=== PATIENT | female | born 1970 | race Caucasian/White ===

== ENCOUNTER → 2017-08-24 | Outpatient (CLI) | payer OTHER ==
--- NOTE | 2017-08-26 08:15 | MM ---
Reason for exam: screening (asymptomatic). Last mammogram was performed 4 years and 1 month ago. History: Family history of breast cancer in grandmother. Benign US right guided mammotome of the right breast, November 04, 2005. Took hormonal contraceptives for 2 years 6 months. Physical Findings: A clinical breast exam by your physician is recommended on an annual basis and results should be correlated with mammographic findings. MG Screening Mammo w CAD Bilateral CC and MLO view(s) were taken. Prior study comparison: July 26, 2013, CAD bilateral diagnostic mammogram. December 31, 2006, CAD bilateral diagnostic mammogram. The breast tissue is heterogeneously dense. This may lower the sensitivity of mammography. Previous mammotome biopsy in the right breast. Microcalcifications posterior upper outer quadrant right breast appears new. Some calcifications at 6 o'clock in the left breast were present in 2012. ASSESSMENT: Incomplete: need additional imaging evaluation, BI-RAD 0 RECOMMENDATION: Special view mammogram of the right breast. [facility] will attempt to contact patient to return for supplemental views.
== END | disposition home or self-care (01) ==
LOC: RADMAMWWP 13:37
PROVIDERS: ATTEND Family Medicine
DX: Z12.31 Encounter for screening mammogram for malignant neoplasm of breast (principal)

== ENCOUNTER → 2018-04-25 | Outpatient (CLI) | payer OTHER ==
--- NOTE | 2018-04-25 10:43 | MM ---
Reason for exam: follow-up at short interval from prior study. Last mammogram was performed 8 months ago. History: Family history of breast cancer in grandmother. Benign US right guided mammotome of the right breast, November 04, 2005. Took hormonal contraceptives for 2 years 6 months. Physical Findings: Nurse Summary: left upper quadrant thickening, tender with palpation (nurse mj). MG 3D Diag Mammo W/Cad EZIO Bilateral CC and MLO view(s) were taken. XCCL, CC with magnification, and LM with magnification view(s) were taken of the right breast. Prior study comparison: August 24, 2017, bilateral MG screening mammo w CAD. Finding: There are increased intermediate concern, suspicious fine, grouped/clustered calcifications in the upper outer quadrant, posterior position of the right breast. Previous mammotome biopsy in the right breast. Finding is changed since August 24, 2017. These results were verbally communicated with the patient and result sheet given to the patient on 04/25/18. ASSESSMENT: Suspicious, BI-RAD 4 Probably benign, BI-RAD 3 finding in the left breast. Suspicious, BI-RAD 4 abnormality in the right breast. RECOMMENDATION: Ultrasound of the left breast. (left mammogram and ultrasound today for palpable thickening) Surgical consultation and stereotactic core biopsy of the right breast. Called Dr. Mccabe with mammographic findings and has scheduled an appointment for the patient for 04/27/18 at 3:[address] Fenton. PRELIMINARY REPORT CALLED AND FAXED TO DR. FENTON ON 04/25/18.
--- NOTE | 2018-04-25 10:46 | USB ---
Reason for exam: clinical finding. History: Family history of breast cancer in grandmother. Benign US right guided mammotome of the right breast, November 04, 2005. Took hormonal contraceptives for 2 years 6 months. Indicated problem(s): palpable abnormality in the left breast. US Breast Limited LT Left limited breast ultrasound including focal area of concern, retroareolar and axilla demonstrates a 0.8 x 0.5 x 0.7cm cystic cluster at 12 o'clock, a 0.7 x 0.3 x 0.6cm cystic cluster at 2 o'clock, a 0.5 x 0.3 x 0.3cm lesion too small to characterize at 3 o'clock and a 0.5 x 0.3 x 0.6cm cystic lesion at 3 o'clock. These results were verbally communicated with the patient and result sheet given to the patient on 04/25/18. ASSESSMENT: Probably benign, BI-RAD 3 RECOMMENDATION: Follow-up diagnostic mammogram and ultrasound of the left breast in 6 months.
== END | disposition home or self-care (01) ==
LOC: RADMAMWWP 07:01
PROVIDERS: ATTEND Family Medicine
DX: R92.8 Other abnormal and inconclusive findings on diagnostic imaging of breast (principal)
CPT/HCPCS: 77062; 77066

== ENCOUNTER → 2018-11-30 | Outpatient (CLI) | payer OTHER ==
--- NOTE | 2018-12-01 10:02 | MM ---
Reason for exam: follow-up at short interval from prior study. Last mammogram was performed 7 months ago. History: Family history of breast cancer in grandmother. Benign US right guided mammotome of the right breast, November 04, 2005. May 19 right excisional. Took hormonal contraceptives for 2 years 6 months. Physical Findings: Nurse did not find any significant physical abnormalities on exam. MG 3D Diag Mammo W/Cad LT Spot compression CC, spot compression MLO, CC, MLO, and ML view(s) were taken of the left breast. Prior study comparison: April 25, 2018, bilateral MG 3d diag mammo w/cad EZIO. August 30, 2017, right breast MG work up mamm w CAD RT. The breast tissue is heterogeneously dense. This may lower the sensitivity of mammography. There is an irregular suspicious equal architechtual distortion indistenct left breast upper middle position. Approximitly 9 cm from the nipple. This is suspicious and a surgical consultation for a stereo core biopsy is recommended. There are stable grouped lower inner middle left breast calcification. Focal asymmetry medial upper left breast that is changed when compared to prior studies and an ultrasound is recommended now. ASSESSMENT: Incomplete: need additional imaging evaluation, BI-RAD 0 RECOMMENDATION: Ultrasound of the left breast.
--- NOTE | 2018-12-01 10:14 | USB ---
Reason for exam: additional evaluation requested from prior study. History: Family history of breast cancer in grandmother. Benign US right guided mammotome of the right breast, November 04, 2005. Took hormonal contraceptives for 2 years 6 months. US Breast Limited LT Left limited breast ultrasound including focal area of concern, retroareolar and axilla demonstrates a 8 x 5 x 7 mm oval solid hypoechoic lesion that needs to be biopsied at the 12 o'clock, a 4 x 3 x 4 mm oval hypoechoic lesion at 3 o'clock, a3 x 2 x 3 mm oval hypoechoic lesion at 3 o'clock, and a 4 x 2 x 5 mm oval hypoechoic lesion at 3 o'clock all seen on previous study These results were verbally communicated with the patient and result sheet given to the patient on 11/30/18. ASSESSMENT: Suspicious, BI-RAD 4 RECOMMENDATION: Stereotactic core biopsy and ultrasound core biopsy of the left breast. Called Dr. Mccabe with mammographic findings and has scheduled an appointment for the patient for 12/07/18 at 1:[address] Fenton for a consultation only. PRELIMINARY REPORT CALLED AND FAXED TO DR. FENTON ON 11/30/18.
== END | disposition home or self-care (01) ==
LOC: RADMAMWWP 08:32
PROVIDERS: ATTEND Family Medicine
DX: R92.8 Other abnormal and inconclusive findings on diagnostic imaging of breast (principal)
CPT/HCPCS: 77061; 77065

== ENCOUNTER → 2019-04-26 | Outpatient (CLI) | payer OTHER ==
--- NOTE | 2019-04-26 11:06 | MM ---
Reason for exam: follow-up at short interval from prior study. Last mammogram was performed 5 months ago. History: Family history of breast cancer in grandmother. Benign stereotactic core biopsy of the left breast, November 2018. Ultrasound-guided core biopsy of the left breast, November 2018. Benign excisional biopsy of the right breast, May 2018. Benign US right guided mammotome of the right breast, November 04, 2005. Took hormonal contraceptives for 2 years 6 months. Physical Findings: Nurse did not find any significant physical abnormalities on exam. MG 3D Diag Mammo W/Cad EZIO Bilateral CC and MLO view(s) were taken. LM, spot compression CC, CC with magnification, and LM with magnification view(s) were taken of the left breast. Prior study comparison: November 30, 2018, left breast MG 3d diag mammo w/cad LT. April 25, 2018, bilateral MG 3d diag mammo w/cad EZIO. The breast tissue is heterogeneously dense. This may lower the sensitivity of mammography. Right post surgical change and additional biopsy marker. Left posterior lateral breast asymmetry on spot views, this improves on spot CC. 6mm group of left lower outer quadrant calcifications at middle depth appears present since 2017 with no appreciable increase in number, however, no magnification news on priors. These appear to layer on magnification ML. Left biopsy markers noted. These results were verbally communicated with the patient and result sheet given to the patient on 04/26/19. ASSESSMENT: Probably benign, BI-RAD 3 RECOMMENDATION: Follow-up diagnostic mammogram of the left breast in 6 months.
== END | disposition home or self-care (01) ==
LOC: RADMAMWWP 08:43
PROVIDERS: ATTEND Family Medicine
DX: R92.8 Other abnormal and inconclusive findings on diagnostic imaging of breast (principal)
CPT/HCPCS: 77062; 77066

== ENCOUNTER 2019-12-24 11:32 | Emergency (ER) | payer OTHER ==
--- NOTE | 2019-12-24 11:56 | ED ---
General Adult HPI - General Chief complaint: Chest Pain Stated complaint: chest pain Time Seen by Provider: 12/24/19 11:40 Source: patient, RN notes reviewed, old records reviewed Mode of arrival: wheelchair Limitations: no limitations - History of Present Illness Initial comments: 49-year-old female presented for evaluation of anterior and right-sided chest pain. Pain is been present for the past 3 days. She's had pain predominantly at rest and treated this to her anxiety. She normally has some chest discomfort associated with her anxiety which is relieved by Xanax. Today she did take a Xanax and this did not completely relieve her symptoms so she presented to the emergency department for evaluation. She denies associated dyspnea. No vomi ting or abdominal pain. No diaphoresis. No lower extremity pain or swelling. Patient is a current smoker and has history of hypertension. She is a nondiabetic. She has a family history of CAD. Denies any extremity or jaw pain. Pain was moderate in intensity described as a discomfort and pressure, - Related Data Allergies Allergy/AdvReac Type Severity Reaction Status Date / Time ampicillin Allergy Nausea & Verified 12/24/19 11:42 Vomiting latex Allergy Unknown Verified 12/24/19 11:42 codeine AdvReac Nausea & Verified 11/30/18 09:30 Vomiting Review of Systems ROS Statement: Those systems with pertinent positive or pertinent negative responses have been documented in the HPI. ROS Other: All systems not noted in ROS Statement are negative. Past Medical History Past Medical History: GERD/Reflux, Hyperlipidemia, Hypertension History of Any Multi-Drug Resistant Organisms: None Reported Past Surgical History: Tonsillectomy Past Psychological History: Anxiety General Exam Limitations: no limitations General appearance: alert, in no apparent distress Head exam: Present: atraumatic, normocephalic Eye exam: Present: normal appearance, PERRL, EOMI ENT exam: Present: normal exam Neck exam: Present: normal inspection. Absent: tenderness Respiratory exam: Present: normal lung sounds bilaterally. Absent: respiratory distress, wheezes Cardiovascular Exam: Present: regular rate, normal rhythm GI/Abdominal exam: Present: soft. Absent: distended, tenderness, guarding Extremities exam: Present: normal inspection, normal capillary refill, other (Distal pulses 2+ and symmetric). Absent: pedal edema, calf tenderness Back exam: Present: normal inspection Neurological exam: Present: alert, oriented X3, CN II-XII intact. Absent: motor sensory deficit Psychiatric exam: Present: anxious Skin exam: Present: warm, dry, intact. Absent: cyanosis, diaphoretic Course Vital Signs 12/24/19 12/24/19 12/24/19 11:39 11:55 12:48 Temperature 97.4 F L Pulse Rate 91 75 Pulse Rate [ 85 [place] ] Respiratory 18 18 Rate Blood Pressure 136/81 120/68 O2 Sat by Pulse 100 99 Oximetry EKG Findings - EKG Comments: EKG Findings:: EKG: Normal sinus rhythm, rate of 89, MI interval 154, QRS duration 84, QTC 435, no ST segment elevation. Medical Decision Making - Medical Decision Making 49-year-old female presented for evaluation of anterior right-sided chest pain. Patient is atypical with some typical features and the patient does have risk factors for CAD. EKG is nonischemic with no ST segment elevation. She has leukocytosis of 14.8 and has recently been on steroids. She has stable hemoglobin. She has an elevated d-dimer at 1.37. She has normal electrolytes, negative initial troponin. Chest x-rays negative for focal pneumonia. CT angiography is obtained given the elevated d-dimer, this is negative for PE. There is a diffuse groundglass opacity suggestive of either alveolitis or CHF. I did recommend admission for this patient for serial troponins, echo, cardiology consultation as well as IV antibiotics and steroids. She declines. She requests be discharged and wants to follow-up with her primary care physician. She is informed of the risks and will return with any worsening or changing symptoms. At the time of final discussion she is chest pain-free., Normal oxygenation on room air, and stable vitals. She will request an echo and stress test as an outpatient and will return with development of fever, dyspnea, chest pain. - Lab Data Result diagrams: 12/24/19 11:51 12/24/19 11:51 Lab Results 12/24/19 12/24/19 12/24/19 Range/Units 11:51 11:51 11:51 WBC 14.8 H (3.8-10.6) k/uL RBC 4.66 (3.80-5.40) m/uL Hgb 14.5 (11.4-16.0) gm/dL Hct 43.6 (34.0-46.0) % MCV 93.6 (80.0-100.0) fL MCH 31.1 (25.0-35.0) pg MCHC 33.2 (31.0-37.0) g/dL RDW 12.9 (11.5-15.5) % Plt Count 296 (150-450) k/uL Neutrophils % 64 % Lymphocytes % 25 % Monocytes % 5 % Eosinophils % 2 % Basophils % 2 % Neutrophils # 9.6 H (1.3-7.7) k/uL Lymphocytes # 3.7 (1.0-4.8) k/uL Monocytes # 0.7 (0-1.0) k/uL Eosinophils # 0.3 (0-0.7) k/uL Basophils # 0.4 H (0-0.2) k/uL PT 10.0 (9.0-12.0) sec INR 1.0 (<1.2) APTT 23.1 (22.0-30.0) sec D-Dimer 1.37 H (<0.60) mg/L FEU Sodium 134 L (137-145) mmol/L Potassium 4.2 (3.5-5.1) mmol/L Chloride 103 (98-107) mmol/L Carbon Dioxide 24 (22-30) mmol/L Anion Gap 7 mmol/L BUN 16 (7-17) mg/dL Creatinine 0.64 (0.52-1.04) mg/dL Est GFR (CKD-EPI)AfAm >90 (>60 ml/min/1.73 sqM) Est GFR (CKD-EPI)NonAf >90 (>60 ml/min/1.73 sqM) Glucose 98 (74-99) mg/dL Calcium 9.5 (8.4-10.2) mg/dL Magnesium 2.0 (1.6-2.3) mg/dL Total Bilirubin 0.5 (0.2-1.3) mg/dL AST 21 (14-36) U/L ALT 23 (4-34) U/L Alkaline Phosphatase 98 (38-126) U/L Troponin I (0.000-0.034) ng/mL Total Protein 7.0 (6.3-8.2) g/dL Albumin 4.2 (3.5-5.0) g/dL 02/09/20 Range/Units 11:51 WBC (3.8-10.6) k/uL RBC (3.80-5.40) m/uL Hgb (11.4-16.0) gm/dL Hct (34.0-46.0) % MCV (80.0-100.0) fL MCH (25.0-35.0) pg MCHC (31.0-37.0) g/dL RDW (11.5-15.5) % Plt Count (150-450) k/uL Neutrophils % % Lymphocytes % % Monocytes % % Eosinophils % % Basophils % % Neutrophils # (1.3-7.7) k/uL Lymphocytes # (1.0-4.8) k/uL Monocytes # (0-1.0) k/uL Eosinophils # (0-0.7) k/uL Basophils # (0-0.2) k/uL PT (9.0-12.0) sec INR (<1.2) APTT (22.0-30.0) sec D-Dimer (<0.60) mg/L FEU Sodium (137-145) mmol/L Potassium (3.5-5.1) mmol/L Chloride (98-107) mmol/L Carbon Dioxide (22-30) mmol/L Anion Gap mmol/L BUN (7-17) mg/dL Creatinine (0.52-1.04) mg/dL Est GFR (CKD-EPI)AfAm (>60 ml/min/1.73 sqM) Est GFR (CKD-EPI)NonAf (>60 ml/min/1.73 sqM) Glucose (74-99) mg/dL Calcium (8.4-10.2) mg/dL Magnesium (1.6-2.3) mg/dL Total Bilirubin (0.2-1.3) mg/dL AST (14-36) U/L ALT (4-34) U/L Alkaline Phosphatase (38-126) U/L Troponin I <0.012 (0.000-0.034) ng/mL Total Protein (6.3-8.2) g/dL Albumin (3.5-5.0) g/dL Disposition Clinical Impression: Chest pain Disposition: HOME SELF-CARE Condition: Fair Instructions (If sedation given, give patient instructions): Chest Pain (ED) Is patient prescribed a controlled substance at d/c from ED?: No Referrals: Rudy Mccabe MD [Primary Care Provider] - 1-2 days Time of Disposition: 13:26
[2019-12-24 12:01] LABS: Basophils # (A) 0.4 k/uL (0-0.2); Basophils % (A) 2 %; Eosinophils # (A) 0.3 k/uL (0-0.7); Eosinophils % (A) 2 %; HCT 43.6 % (34.0-46.0); HGB 14.5 gm/dL (11.4-16.0); Lymphocytes # (A) 3.7 k/uL (1.0-4.8); Lymphocytes % (A) 25 %; MCH 31.1 pg (25.0-35.0); MCHC 33.2 g/dL (31.0-37.0); MCV 93.6 fL (80.0-100.0); Mean Platelet Volume 7.6; Monocytes # (A) 0.7 k/uL (0-1.0); Monocytes % (A) 5 %; Neutrophils # (A) 9.6 k/uL (1.3-7.7); Neutrophils % (A) 64 %; Platelet Count 296 k/uL (150-450); RBC 4.66 m/uL (3.80-5.40); RDW 12.9 % (11.5-15.5); WBC 14.8 k/uL (3.8-10.6)
[2019-12-24 12:10] LABS: ALT 23 U/L (4-34); AST 21 U/L (14-36); African American GFR (CKD) >90 (>60 ml/min/1.73 sqM); Albumin 4.2 g/dL (3.5-5.0); Alkaline Phosphatase 98 U/L (38-126); Anion Gap 7 mmol/L; Blood Urea Nitrogen 16 mg/dL (7-17); Calcium 9.5 mg/dL (8.4-10.2); Carbon Dioxide 24 mmol/L (22-30); Chloride 103 mmol/L (98-107); Glucose 98 mg/dL (74-99); Non-African American GFR(CKD) >90 (>60 ml/min/1.73 sqM); Potassium 4.2 mmol/L (3.5-5.1); Sodium 134 mmol/L (137-145); Total Bilirubin 0.5 mg/dL (0.2-1.3)
[2019-12-24 12:15] LABS: Partial Thromboplastin Time 23.1 sec (22.0-30.0)
[2019-12-24 12:22] LABS: D-Dimer 1.37 mg/L FEU (<0.60)
--- NOTE | 2019-12-24 12:23 | XR ---
EXAMINATION TYPE: XR chest 2V DATE OF EXAM: 12/24/2019 HISTORY: Chest Pain. REFERENCE: NONE. FINDINGS: The lungs are clear. Pleural spaces are clear. The heart is not enlarged. IMPRESSION: NO ACTIVE INTRATHORACIC DISEASE.
[2019-12-24] MEDS ORDERED: ASPIRIN 325 MG TAB PO STA (12:35)
[2019-12-24 12:49] VITALS: BP 120/68; PULSE 75
--- NOTE | 2019-12-24 13:00 | CT ---
EXAMINATION TYPE: CT angio chest DATE OF EXAM: 12/24/2019 12:42 PM COMPARISON: None. HISTORY: Chest pains, elevated d-dimer CT DLP: 363.8 mGycm Automated exposure control for dose reduction was used. CONTRAST: CTA scan of the thorax is performed with IV Contrast, patient injected with 100 mL of Isovue 370, pul monary embolism protocol. . FINDINGS: There is diffuse groundglass opacity throughout both lungs with small areas of relative spa ring. This may be on the basis of alveolitis, pneumonitis or congestive heart failure. There is no lo bar consolidation identified. There is no significant axillary, mediastinal or hilar adenopathy. There is no evidence of pulmonary embolus. The aorta is normal in caliber without evidence of dissection. There is no pleural or pericardial flu id. Heart size is within normal limits. There is a small hiatal hernia. There is evidence of old granulomatous disease in the liver and spleen. The spleen is quite heterogen ous in its enhancement pattern. This is likely due to the arterial nature of the contrast bolus. IMPRESSION: 1. THIS EXAMINATION IS NEGATIVE FOR PULMONARY EMBOLUS. 2. DIFFUSE GROUNDGLASS OPACITY THROUGHOUT THE LUNGS DISCUSSED ABOVE. 3. EVIDENCE OF OLD GRANULOMATOUS DISEASE OF THE LIVER AND SPLEEN.
[2019-12-24] MEDS ORDERED: DEXAMETHASONE SOD PHOSPHATE 10 MG/ML 1 ML VIAL IV STA (13:08)
[2019-12-24] MEDS ORDERED: AZITHROMYCIN 500 MG in SODIUM CHLORIDE 0.9% 250 ML IVPB STA (13:08)
[2019-12-24] MEDS ORDERED: cefTRIAXone IN SWFI 1,000 MG/10 ML SYRINGE IVP STA (13:08)
[2019-12-24 13:31] VITALS: RESP 14; TEMP 98.1
== END 2019-12-24 13:35 | disposition home or self-care (01) ==
LOC: EC 11:32
DX: R07.9 Chest pain, unspecified (principal); I10 Essential (primary) hypertension; Z88.1 Allergy status to other antibiotic agents; Z91.040 Latex allergy status; Z88.5 Allergy status to narcotic agent
CPT/HCPCS: 36415; 93005; 85379; 83880; 80053; 83735; 84484; 85025; 85610; 85730; 71046; 71275; 99285; Q9967

== ENCOUNTER → 2020-07-10 | Outpatient (CLI) | payer OTHER ==
--- NOTE | 2020-07-10 14:47 | MM ---
Reason for exam: additional evaluation requested from prior study. Last mammogram was performed 1 year and 2 months ago. History: Patient is postmenopausal. Family history of breast cancer in grandmother. Benign stereotactic core biopsy of the left breast, November 2018. Ultrasound-guided core biopsy of the left breast, November 2018. Benign excisional biopsy of the right breast, May 2018. Benign US right guided mammotome of the right breast, November 04, 2005. Took hormonal contraceptives for 2 years 6 months. Physical Findings: Nurse did not find any significant physical abnormalities on exam. MG 3D Diag Mammo W/Cad EZIO Bilateral CC and MLO view(s) were taken. Prior study comparison: April 26, 2019, bilateral MG 3d diag mammo w/cad EZIO. November 30, 2018, left breast MG 3d diag mammo w/cad LT. The breast tissue is heterogeneously dense. This may lower the sensitivity of mammography. Finding: There are stable fine, grouped/clustered calcifications in the upper quadrant, middle position of the left breast. Previous mammotome biopsy in the right and left breast. No significant changes in finding since April 26, 2019 and November 30, 2018. These results were verbally communicated with the patient and result sheet given to the patient on 07/10/20. ASSESSMENT: Benign, BI-RAD 2 RECOMMENDATION: Routine screening mammogram of both breasts in 1 year.
== END | disposition home or self-care (01) ==
LOC: RADMAMWWP 13:44
PROVIDERS: ATTEND Family Medicine
DX: R92.8 Other abnormal and inconclusive findings on diagnostic imaging of breast (principal)
CPT/HCPCS: 77062; 77066

== ENCOUNTER → 2021-03-13 | Outpatient (CLI) | payer OTHER ==
--- NOTE | 2021-03-13 16:31 | XR ---
EXAMINATION TYPE: XR knee limited RT DATE OF EXAM: 03/13/2021 CLINICAL HISTORY: Pain TECHNIQUE: Frontal and lateral views of the right knee are obtained. COMPARISON: None. FINDINGS: There is no acute fracture/dislocation evident in right knee. Mild to moderate tricompartm ent joint space loss without significant spurring. The overlying soft tissue appears unremarkable. IMPRESSION: As above.
--- NOTE | 2021-03-13 16:37 | XR ---
Lumbosacral spine HISTORY: M 54.5, M 25.561, pain 5 views of the lumbosacral spine, correlation CT scan 12/24/2019 Lumbar vertebral bodies show preserved height, alignment, and bone mineralization. There is no eviden t spondylolysis or spondylolisthesis. There is some loss of disc height at intervertebral levels L5-S 1, L3-4 greater than L2-3, L1-2. Sclerosis is present in the posterior elements. Bone mineralization is mildly reduced. There is a calcification present in the right upper quadrant measures 3 to 4 mm, m ultiple calcifications are present within the spleen likely due to old granulomatous disease. IMPRESSION: Degenerative disc disease, facet arthropathy, osteopenia.
== END | disposition home or self-care (01) ==
LOC: RADXRMAIN 16:04
PROVIDERS: ATTEND Family Medicine
DX: M51.36 Other intervertebral disc degeneration, lumbar region (principal); M47.816 Spondylosis without myelopathy or radiculopathy, lumbar region; M85.88 Other specified disorders of bone density and structure, other site; M25.861 Other specified joint disorders, right knee
CPT/HCPCS: 72110

== ENCOUNTER → 2022-10-06 | Outpatient (CLI) | payer OTHER ==
[2022-10-06 16:27] LABS: Chol/HDL Ratio 6.59 Ratio; LDL Cholesterol,Calculated 129.7 mg/dL (0.0-131.0)
[2022-10-06 16:33] LABS: ALT 21 U/L (8-44); AST 19 U/L (13-35); African American GFR (CKD) 97.6 (60.0-200.0); Albumin 4.4 g/dL (3.8-4.9); Albumin/Globulin Ratio 1.91 (1.60-3.17); Alkaline Phosphatase 131 U/L (41-126); BUN/Creat Ratio 18.88 Ratio (12.00-20.00); Blood Urea Nitrogen 15.1 mg/dL (9.0-27.0); Calcium 9.5 mg/dL (8.7-10.3); Carbon Dioxide 21.9 mmol/L (20.0-27.5); Chloride 102 mmol/L (96-109); Globulin 2.3 g/dL (1.6-3.3); Glucose 89 mg/dL (70-110); Non-African American GFR(CKD) 84.2 (60.0-200.0); Potassium 4.7 mmol/L (3.5-5.5); Sodium 136 mmol/L (135-145); Total Protein 6.7 g/dL (6.2-8.2)
== END | disposition home or self-care (01) ==
LOC: LABWHC1 09:14
PROVIDERS: ATTEND Family Medicine
DX: Z00.01 Encounter for general adult medical examination with abnormal findings (principal); R53.83 Other fatigue; E66.3 Overweight
CPT/HCPCS: 36415; 80053; 80061; 85027

== ENCOUNTER 2022-12-02 09:54 | Emergency (ER) | payer OTHER ==
[2022-12-02] MEDS ORDERED: SODIUM CHLORIDE 0.9% 1,000 ML IV STA (10:18)
[2022-12-02 11:27] LABS: Basophils # (A) 0.1 k/uL (0-0.2); Basophils % (A) 1 %; Eosinophils # (A) 0.4 k/uL (0-0.7); Eosinophils % (A) 4 %; HGB 15.2 gm/dL (11.4-16.0); Lymphocytes # (A) 4.1 k/uL (1.0-4.8); Lymphocytes % (A) 33 %; MCH 31.1 pg (25.0-35.0); MCHC 33.8 g/dL (31.0-37.0); MCV 91.9 fL (80.0-100.0); Mean Platelet Volume 8.3; Monocytes # (A) 0.5 k/uL (0-1.0); Monocytes % (A) 4 %; Neutrophils # (A) 6.9 k/uL (1.3-7.7); Neutrophils % (A) 56 %; Platelet Count 311 k/uL (150-450); RDW 12.6 % (11.5-15.5); WBC 12.2 k/uL (3.8-10.6)
--- NOTE | 2022-12-02 11:41 | CT ---
EXAMINATION TYPE: CT facial bones wo con DATE OF EXAM: 12/02/2022 COMPARISON: None HISTORY: 52-year-old female Right preauricular swelling TECHNIQUE: Contiguous axial scanning of the facial bones without IV contrast. Coronal and sagittal re constructions performed. CT DLP: 403.6 mGycm Automated exposure control for dose reduction was used. FINDINGS: Visualized cranial structures show no gross abnormality. There may be slight asymmetric fullness of the right parotid gland and minimal fat stranding in the o verlying subcutaneous adipose, axial image 29. No abnormal fluid collection is seen. Possible 3 mm stone along the anterior margin of the right parotid gland/proximal Stensen's duct, axi al image 30 and coronal image 38. Paranasal sinuses and mastoid air cells as well as the middle ear cavities appear well pneumatized. Scattered dental amalgam. Some punctate calcifications in the bilateral palatine tonsils suggest sequela of prior infection. IMPRESSION: MILD ASYMMETRIC SWELLING/INFLAMMATION OF THE RIGHT PAROTID GLAND SUGGESTING PAROTIDIS. ON AXIAL IMAGE 30 AND CORONAL IMAGE 38, THERE IS A POSSIBLE TINY 3 MM STONE IN THE PROXIMAL RIGHT STENSEN'S DUCT.
[2022-12-02 11:44] LABS: ALT 33 U/L (4-34); AST 26 U/L (14-36); African American GFR (CKD) >90 (>60 ml/min/1.73 sqM); Albumin 4.7 g/dL (3.5-5.0); Alkaline Phosphatase 112 U/L (38-126); Anion Gap 7 mmol/L; Blood Urea Nitrogen 16 mg/dL (7-17); Calcium 9.4 mg/dL (8.4-10.2); Carbon Dioxide 28 mmol/L (22-30); Chloride 103 mmol/L (98-107); Glucose 121 mg/dL (74-99); Non-African American GFR(CKD) >90 (>60 ml/min/1.73 sqM); Potassium 4.2 mmol/L (3.5-5.1); Sodium 138 mmol/L (137-145); Total Bilirubin 0.4 mg/dL (0.2-1.3); Total Protein 7.7 g/dL (6.3-8.2)
[2022-12-02] MEDS ORDERED: CLINDAMYCIN 150 MG CAP PO STA (12:00)
[2022-12-02] MEDS ORDERED: ONDANSETRON ODT 4 MG TAB PO STA (12:01)
--- NOTE | 2022-12-02 12:03 | ED ---
General Adult HPI - General Chief complaint: Recheck/Abnormal Lab/Rx Stated complaint: ear pain, facial swelling Time Seen by Provider: 12/02/22 10:10 Source: patient Mode of arrival: ambulatory Limitations: no limitations - History of Present Illness Initial comments: Patient is a 52 year old female who presents to the ED for facial swelling. One week ago patient noticed swelling of her right cheek just in front of her ear. Her primary care gave her bactrim which she took for 2 days and stopped due to nausea. He then gave her a z-pack which she is towards the end of. Patient reports no improvement of swelling. She reports mild discomfort of her cheek otherwise no pain. Denies toothache, lockjaw, drooling, earache, URI symptoms, trouble breathing, neck pain. - Related Data Home Medications Medication Instructions Recorded Confirmed ALPRAZolam [Xanax] 0.5 mg PO QID PRN 12/02/22 12/02/22 Atorvastatin [Lipitor] 10 mg PO HS 12/02/22 12/02/22 Azithromycin [Zithromax Z Pack] See Taper PO DIRECTED 12/02/22 12/02/22 Lisinopril-Hctz 10-12.5 mg 1 tab PO HS 12/02/22 12/02/22 [Zestoretic 10-12.5] Meclizine [Antivert] 25 mg PO TID PRN 12/02/22 12/02/22 Meloxicam [Mobic] 15 mg PO HS 12/02/22 12/02/22 Montelukast [Singulair] 10 mg PO HS 12/02/22 12/02/22 Omeprazole [PriLOSEC] 20 mg PO HS 12/02/22 12/02/22 Previous Rx's Medication Instructions Recorded Clindamycin [Cleocin] 450 mg PO Q8H #63 capsule 12/02/22 Ibuprofen [Motrin] 800 mg PO Q8HR PRN #30 tab 12/02/22 Ondansetron Odt [Zofran Odt] 4 mg PO Q8HR PRN #12 tab 12/02/22 Allergies Allergy/AdvReac Type Severity Reaction Status Date / Time amoxicillin Allergy Rash/Hives Verified 12/02/22 12:19 ampicillin Allergy Nausea & Verified 12/02/22 12:19 Vomiting latex Allergy Unknown Verified 12/02/22 12:19 Penicillins Allergy Swelling/Hi Verified 12/02/22 12:19 ves codeine AdvReac Nausea & Verified 12/02/22 12:19 Vomiting sulfamethoxazole AdvReac Nausea Verified 12/02/22 12:19 [From Bactrim] trimethoprim [From Bactrim] AdvReac Nausea Verified 12/02/22 12:19 Review of Systems ROS Statement: Those systems with pertinent positive or pertinent negative responses have been documented in the HPI. ROS Other: All systems not noted in ROS Statement are negative. Past Medical History Past Medical History: GERD/Reflux, Hyperlipidemia, Hypertension History of Any Multi-Drug Resistant Organisms: None Reported Past Surgical History: Tonsillectomy Past Psychological History: Anxiety Smoking Status: Current every day smoker Past Alcohol Use History: Occasional Past Drug Use History: None Reported General Exam Limitations: no limitations General appearance: alert, in no apparent distress Head exam: Present: other (moderate right parotid swelling. No overlying erythema, blanching. minimal tenderness with palpation ) Eye exam: Present: normal appearance, PERRL, EOMI. Absent: scleral icterus, conjunctival injection, periorbital swelling ENT exam: Present: normal oropharynx, TM's normal bilaterally Respiratory exam: Present: normal lung sounds bilaterally. Absent: respiratory distress, wheezes, rales, rhonchi, stridor Neurological exam: Present: alert, oriented X3, CN II-XII intact Psychiatric exam: Present: normal affect, normal mood Skin exam: Present: warm, dry, intact, normal color. Absent: rash Course Vital Signs 12/02/22 12/02/22 10:04 13:20 Temperature 98.6 F 98.2 F Pulse Rate 103 H 76 Respiratory 20 16 Rate Blood Pressure 120/50 107/55 O2 Sat by Pulse 100 99 Oximetry Medical Decision Making - Medical Decision Making Was pt. sent in by a medical professional or institution (, PA, DECORATOR CONSULTANT, urgent care, hospital, or fci...) When possible be specific @ -[No] Did you speak to anyone other than the patient for history (EMS, parent, family, police, friend...)? What history was obtained from this source @ -[No] Did you review nursing and triage notes (agree or disagree)? Why? @ -[I reviewed and disagree. Patient does not have ear pain. Were old charts reviewed (outside hosp., previous admission, EMS record, old EKG, old radiological studies, urgent care reports/EKG's, fci records)? Report findings @ -[No old charts were reviewed] Differential Diagnosis (chest pain, altered mental status, abdominal pain women, abdominal pain men, vaginal bleeding, weakness, fever, dyspnea, syncope, headache, dizziness, GI bleed, back pain, seizure, CVA, palpatations, mental health)? @ -dental abscess, cellulitis, parotitis EKG interpreted by me (3pts min.). @ -[As above] X-rays interpreted by me (1pt min.). @ -[None done] CT interpreted by me (1pt min.). @ He has, CT facial bones without contrast shows right parotitis with a 3 mm stone in marci's duct U/S interpreted by me (1pt. min.). @ -[None done] What testing was considered but not performed or refused? (CT, X-rays, U/S, labs)? Why? @ -[None] What meds were considered but not given or refused? Why? @ -[None] Did you discuss the management of the patient with other professionals (professionals i.e. , PA, DECORATOR CONSULTANT, lab, RT, psych nurse, social service liaison, banana grader, teacher, appeals officer, case management social worker)? Give summary @ -[No] Was smoking cessation discussed for >3mins.? @ -[No] Was critical care preformed (if so, how long)? @ -[No] Were there social determinants of health that impacted care today? How? (Homelessness, low income, unemployed, alcoholism, drug addiction, transportation, low edu. Level, literacy, decrease access to med. care, assisted, rehab)? @ -[No] Was there de-escalation of care discussed even if they declined (Discuss DNR or withdrawal of care, Hospice)? DNR status @ -[No] What co-morbidities impacted this encounter? (DM, HTN, Smoking, COPD, CAD, Cancer, CVA, ARF, Chemo, Hep., AIDS, mental health diagnosis, sleep apnea, morbid obesity)? @ -[None] Was patient admitted / discharged? Hospital course, mention meds given and rout e, prescriptions, significant lab abnormalities, going to OR and other pertinent info. @ -This is a 52 year old presenting with right facial swelling. CT shows right parotitis with a 3 mm stone in stensen's duct. Stone not visible on physical exam-patient to treat with sour candy at home. Patient looks well, no airway involvement, no fever, no URI symptoms-however I will cover with antibiotics for possibility of infectious process. Clindamycin given. Patient to follow up with PCP Undiagnosed new problem with uncertain prognosis? @ -[No] Jose F is a 52-year-old female presenting her cheeks swelling. CT reveals. Thought iterapy requiring intensive monitoring for toxicity (Heparin, Nitro, Insulin, Cardizem)? @ -[No] Were any procedures done? @ -[No] Diagnosis/symptom? @ -right parotitis Acute, or Chronic, or Acute on Chronic? @ -acute Uncomplicated (without systemic symptoms) or Complicated (systemic symptoms)? @ -uncomplicated Side effects of treatment? @ -[No] Exacerbation, Progression, or Severe Exacerbation? @ -[No] Poses a threat to life or bodily function? How? (Chest pain, USA, MD, pneumonia, PE, COPD, DKA, ARF, appy, cholecystitis, CVA, Diverticulitis, Homicidal, Suicidal, threat to staff... and all critical care pts) @ -[No] Dr. Roldan is my attending. - Lab Data Result diagrams: 12/02/22 10:43 12/02/22 10:43 Lab Results 12/02/22 12/02/22 Range/Units 10:43 10:43 WBC 12.2 H (3.8-10.6) k/uL RBC 4.90 (3.80-5.40) m/uL Hgb 15.2 (11.4-16.0) gm/dL Hct 45.0 (34.0-46.0) % MCV 91.9 (80.0-100.0) fL MCH 31.1 (25.0-35.0) pg MCHC 33.8 (31.0-37.0) g/dL RDW 12.6 (11.5-15.5) % Plt Count 311 (150-450) k/uL MPV 8.3 Neutrophils % 56 % Lymphocytes % 33 % Monocytes % 4 % Eosinophils % 4 % Basophils % 1 % Neutrophils # 6.9 (1.3-7.7) k/uL Lymphocytes # 4.1 (1.0-4.8) k/uL Monocytes # 0.5 (0-1.0) k/uL Eosinophils # 0.4 (0-0.7) k/uL Basophils # 0.1 (0-0.2) k/uL Sodium 138 (137-145) mmol/L Potassium 4.2 (3.5-5.1) mmol/L Chloride 103 (98-107) mmol/L Carbon Dioxide 28 (22-30) mmol/L Anion Gap 7 mmol/L BUN 16 (7-17) mg/dL Creatinine 0.75 (0.52-1.04) mg/dL Est GFR (CKD-EPI)AfAm >90 (>60 ml/min/1.73 sqM) Est GFR (CKD-EPI)NonAf >90 (>60 ml/min/1.73 sqM) Glucose 121 H (74-99) mg/dL Calcium 9.4 (8.4-10.2) mg/dL Total Bilirubin 0.4 (0.2-1.3) mg/dL AST 26 (14-36) U/L ALT 33 (4-34) U/L Alkaline Phosphatase 112 (38-126) U/L Total Protein 7.7 (6.3-8.2) g/dL Albumin 4.7 (3.5-5.0) g/dL Disposition Clinical Impression: Parotitis, acute, Parotid duct obstruction Disposition: HOME SELF-CARE Condition: Good Instructions (If sedation given, give patient instructions): Parotid Duct Obstruction (ED) Additional Instructions: Take antibiotic as directed. This antibiotic may cause diarrhea. Lemonheads are great sour candy I recommend using to clear blockage. Follow up with primary care provider in one to 2 days. Return to the emergency department if you experience new, concerning, or worsening symptoms Prescriptions: Clindamycin [Cleocin] 450 mg PO Q8H #63 capsule Ibuprofen [Motrin] 800 mg PO Q8HR PRN #30 tab PRN Reason: Pain Ondansetron Odt [Zofran Odt] 4 mg PO Q8HR PRN #12 tab PRN Reason: Nausea Is patient prescribed a controlled substance at d/c from ED?: No Referrals: Rudy Mccabe MD [Primary Care Provider] - 1-2 days
[2022-12-02 13:23] VITALS: BP 107/55; PULSE 76; RESP 16; TEMP 98.2
== END 2022-12-02 13:22 | disposition home or self-care (01) ==
LOC: EC 09:54
DX: K11.21 Acute sialoadenitis (principal); K11.8 Other diseases of salivary glands; K21.9 Gastro-esophageal reflux disease without esophagitis; E78.5 Hyperlipidemia, unspecified; I10 Essential (primary) hypertension; F41.9 Anxiety disorder, unspecified; F17.200 Nicotine dependence, unspecified, uncomplicated; Z88.0 Allergy status to penicillin; Z88.2 Allergy status to sulfonamides; Z91.040 Latex allergy status; Z88.1 Allergy status to other antibiotic agents; Z79.899 Other long term (current) drug therapy
CPT/HCPCS: 36415; 70486; 80053; 85025; 96360; 96361; 99284

== ENCOUNTER → 2023-10-19 | Outpatient (CLI) | payer OTHER ==
--- NOTE | 2023-10-21 12:05 | MM ---
Reason for Exam: Screening (asymptomatic). Last mammogram was performed 3 year(s) and 4 month(s) ago. Patient History: Menarche at age 14. First Full-Term at age 17. Postmenopausal. Hormonal Contraceptives for 2 years, 6 months. 11/2018, Ultrasound-Guided Core Biopsy on the Left side. 11/2018, Benign Stereotactic Core Biopsy on the left side. 05/2018, Benign Excisional Biopsy on the right side. 11/04/2005, Benign Core Biopsy on the right side. Maternal grandmother had breast cancer. Risk Values: Jennifer 5 year model risk: 1.1%. NCI Lifetime model risk: 8.2%. Prior Study Comparison: 11/30/2018 Left Diagnostic Mammogram, [facility]. 04/26/2019 Bilateral Diagnostic Mammogram, [facility]. 07/10/2020 Bilateral Diagnostic Mammogram, [facility]. Tissue Density: The breast tissue is heterogeneously dense. This may lower the sensitivity of mammography. Findings: Analyzed By CAD. There is no suspicious group of microcalcifications or new suspicious mass in either breast. Overall Assessment: Benign, BI-RAD 2 Management: Screening Mammogram of both breasts in 1 year. . Patient should continue monthly self-breast exams. A clinical breast exam by your physician is recommended on an annual basis. This exam should not preclude additional follow-up of suspicious palpable abnormalities. Note on Jennifer scores and lifetime risk: 1. A Jennifer score greater than 3% is considered moderate risk. If this is the case, consider specialist referral to assess eligibility for a risk reducing agent. 2. If overall lifetime risk for the development of breast cancer is 20% or higher, the patient may qualify for future screening with alternating mammogram and breast MRI. Electronically signed and approved by: Carl Cage M.D. Radiologis
== END | disposition home or self-care (01) ==
LOC: RADMAMWWP 12:46
PROVIDERS: ATTEND Family Medicine
DX: Z12.31 Encounter for screening mammogram for malignant neoplasm of breast (principal); Z78.0 Asymptomatic menopausal state; Z80.3 Family history of malignant neoplasm of breast
CPT/HCPCS: 77063; 77067

== ENCOUNTER → 2023-12-03 | Outpatient (CLI) | payer OTHER ==
[2023-12-03 15:22] LABS: HCT 42.5 % (37.2-46.3); HGB 14.1 g/dL (12.0-15.0); MCH 31.8 pg (27.0-32.0); MCHC 33.2 g/dL (32.0-37.0); MCV 95.7 FL (80.0-97.0); Mean Platelet Volume 10.7 FL (9.5-12.2); NRBC Per 100 WBC 0 X 10*3/uL (0.00-0.01); Platelet Count 294 X 10*3/uL (140-440); RBC 4.44 X 10*6/uL (4.10-5.20); RDW 13.5 % (11.5-14.5); WBC 16.24 X 10*3/uL (4.50-10.00)
[2023-12-03 16:10] LABS: ALT 21 U/L (8-44); AST 16 U/L (13-35); Albumin 4.2 g/dL (3.8-4.9); Albumin/Globulin Ratio 1.75 Ratio (1.60-3.17); Alkaline Phosphatase 94 U/L (41-126); BUN/Creat Ratio 17.43 Ratio (12.00-20.00); Blood Urea Nitrogen 12.2 mg/dL (9.0-27.0); Calcium 9.8 mg/dL (8.7-10.3); Carbon Dioxide 22.9 mmol/L (21.6-31.8); Chloride 100 mmol/L (96-109); Chol/HDL Ratio 4.02 Ratio; Globulin 2.4 g/dL (1.6-3.3); Glucose 78 mg/dL (70-110); LDL Cholesterol,Calculated 105.6 mg/dL (0.0-131.0); Potassium 4.2 mmol/L (3.5-5.5); Sodium 138 mmol/L (135-145); Total Bilirubin 0.3 mg/dL (0.3-1.2); Total Protein 6.6 g/dL (6.2-8.2)
== END | disposition home or self-care (01) ==
LOC: LABWHC1 08:30
PROVIDERS: ATTEND Family Medicine
DX: Z00.01 Encounter for general adult medical examination with abnormal findings (principal); E66.3 Overweight; E78.2 Mixed hyperlipidemia; R53.83 Other fatigue
CPT/HCPCS: 36415; 80053; 80061; 85027

== ENCOUNTER → 2023-12-03 | Outpatient (CLI) | payer OTHER ==
--- NOTE | 2023-12-03 08:35 | CT ---
EXAMINATION TYPE: CT sinus wo con DATE OF EXAM: 12/03/2023 COMPARISON: Prior facial bone CT December 02, 2022 HISTORY: sinusitis. CT DLP: 622.9 mGycm. Automated Exposure Control for Dose Reduction was Utilized. TECHNIQUE: CT scan of the sinuses is performed without contrast, axial images are obtained, coronal r eformatted images are also reviewed. FINDINGS: The paranasal sinuses including the frontal, ethmoid, sphenoid, and maxillary sinuses bila terally are well-aerated without abnormal opacification or suspicious air-fluid levels. The ostiomea chriss complex is patent bilaterally on the coronal images. Visualized portion of mastoid air cells show no abnormal opacification. The globes are intact bilate rally. Visualized brain parenchyma is unremarkable. IMPRESSION: The paranasal sinuses remain clear and the ostiomeatal complex is patent bilaterally.
== END | disposition home or self-care (01) ==
LOC: RADCTMAIN 08:12
PROVIDERS: ATTEND Family Medicine
DX: J32.9 Chronic sinusitis, unspecified (principal); J34.89 Other specified disorders of nose and nasal sinuses
CPT/HCPCS: 70486

== ENCOUNTER → 2024-10-26 | Outpatient (CLI) | payer OTHER ==
--- NOTE | 2024-10-26 11:38 | MR ---
EXAMINATION TYPE: MR cervical spine wo con DATE OF EXAM: 10/26/2024 8:12 AM COMPARISON: None. CLINICAL INDICATION: Female, 54 years old with history of M54.2 CERVICALGIA, Neck pain into Rt should er x2 months IV Contrast: cc (None if empty) TECHNIQUE: Multiplanar, multisequence images of the cervical spine were acquired without contrast. Findings: The craniovertebral junction relationships and prevertebral soft tissues are normal. The cervical vertebral segments are normal in height and alignment and there is no fracture or sublux ation. The disc spaces are well preserved in height. There is mild posterior disc bulge at the C3-4, C4-5, C 5-6 and C6-7 levels indicating mild degenerative disc disease. There is no significant effacement of the ventral aspect of thecal sac and there is no cervical stenosis. The cervical cord is normal in si ze and signal intensity. No cervical disc herniation. There is mild neuroforaminal stenosis at C6-7 bilaterally. The paraspinal soft tissues are unremarkable. IMPRESSION: 1. Mild multilevel degenerative disc disease as described above. 2. No cervical stenosis or cervical disc herniation. 3. mild neuroforaminal stenosis at C6-7 bilaterally. 4. Normal cervical cord [facility], , 10/26/2024 11:35 AM
== END | disposition home or self-care (01) ==
LOC: RADMRIMAIN 07:31
PROVIDERS: ATTEND Orthopaedic Surgery Orthopaedic Surgery of the Spine
DX: M50.123 Cervical disc disorder at C6-C7 level with radiculopathy (principal); M99.71 Connective tissue and disc stenosis of intervertebral foramina of cervical region; M79.12 Myalgia of auxiliary muscles, head and neck
CPT/HCPCS: 72141

== ENCOUNTER → 2024-12-01 | Outpatient (CLI) | payer OTHER ==
--- NOTE | 2024-12-01 10:09 | MM ---
Reason for Exam: Screening (asymptomatic). Last mammogram was performed 1 year(s) and 1 month(s) ago. Patient History: Menarche at age 14. First Full-Term at age 17. Postmenopausal. Hormonal Contraceptives for 2 years, 6 months. 11/2018, Ultrasound-Guided Core Biopsy on the Left side. 11/2018, Benign Stereotactic Core Biopsy on the left side. 05/2018, Benign Excisional Biopsy on the right side. 11/04/2005, Benign Core Biopsy on the right side. Maternal grandmother had breast cancer. Risk Values: Jennifer 5 year model risk: 1.2%. NCI Lifetime model risk: 8.1%. Prior Study Comparison: 04/26/2019 Bilateral Diagnostic Mammogram, [facility]. 07/10/2020 Bilateral Diagnostic Mammogram, [facility]. 10/19/2023 Bilateral MG 3D screening mammo w/cad, [facility]. Tissue Density: The breasts are heterogeneously dense, which may obscure small masses. Findings: Analyzed By CAD. Biopsy clips in the bilateral breasts are redemonstrated. Occasional scattered benign-appearing round and dystrophic calcifications bilaterally are redemonstrated. Stable 10 mm circumscribed mass in the outer aspect right breast unchanged from multiple mammogram. There is no suspicious new group of microcalcifications or new suspicious mass in either breast. Overall Assessment: Benign, BI-RAD 2 Management: Screening Mammogram of both breasts in 1 year. . Patient should continue monthly self-breast exams. A clinical breast exam by your physician is recommended on an annual basis. This exam should not preclude additional follow-up of suspicious palpable abnormalities. Note on Jennifer scores and lifetime risk: 1. A Jennifer score greater than 3% is considered moderate risk. If this is the case, consider specialist referral to assess eligibility for a risk reducing agent. 2. If overall lifetime risk for the development of breast cancer is 20% or higher, the patient may qualify for future screening with alternating mammogram and breast MRI. [facility], , 12/01/2024 10:06 AM. Electronically signed and approved by: Will Yost M.D.
== END | disposition home or self-care (01) ==
LOC: RADMAMWWP 09:12
PROVIDERS: ATTEND Family Medicine
DX: Z12.31 Encounter for screening mammogram for malignant neoplasm of breast (principal); Z78.0 Asymptomatic menopausal state; Z80.3 Family history of malignant neoplasm of breast; R92.333 Mammographic heterogeneous density, bilateral breasts; Z98.82 Breast implant status
CPT/HCPCS: 77063; 77067